=== PATIENT | male | born 2000 | race African-American/Black ===

== ENCOUNTER 2023-04-05 15:43 | Emergency (ER) | payer OTHER ==
[~2023-04-05] VITALS: Ht 172.7 cm; Wt 81.6 kg
[2023-04-05 19:41] VITALS: BP 138/84; TEMP 98.9; O2SAT 98
== END 2023-04-05 19:44 | disposition home or self-care (01) ==
LOC: M ED 15:43
DX: S70.12XA Contusion of left thigh, initial encounter (principal); W22.8XXA Striking against or struck by other objects, initial encounter; F10.10 Alcohol abuse, uncomplicated; Y99.1 Military activity